=== PATIENT | female | born 1990 | race Caucasian/White ===

== ENCOUNTER 2023-08-27 09:59 | Emergency (ER) | payer OTHER, SELFPAY ==
[2023-08-27] VITALS (9 sets, daily range): BP systolic 121–140; BP diastolic 76–89; PULSE 90–116; RESP 18–20; TEMP 36.8; O2SAT 96–100
--- NOTE | 2023-08-27 10:31 | ECG_ITS ---
Measurements Intervals [place] Rate: 90 P: 28 TX: 199 QRS: 37 QRSD: 89 T: 58 QT: 357 QTc: 439 Interpretive Statements SINUS RHYTHM WITHIN NORMAL LIMITS NO PREVIOUS ECG AVAILABLE FOR COMPARISON Electronically Signed On 08-27-2023 15:12:14 UNDERWRITING INTERN by Lit Mckeon M.D.
--- NOTE | 2023-08-27 11:17 | PC.NURSE ---
Pt reported my face feels really hot . Applied cool wash cloth to provide comfort.
[2023-08-27 11:29] LABS: Basophils Absolute Auto 0.1 K/mm3 (0.0-0.1); Basophils Percent Auto 0.5 % (0.2-1.2); Eosinophils Absolute Auto 0.1 K/mm3 (0-0.3); Eosinophils Percent Auto 1.2 % (0-4.4); Hematocrit 43.5 % (37.0-47.0); Hemoglobin 14.1 g/dL (12.0-15.0); Immature Granulocyte Absolute 0.04 K/mm3 (0.00-0.031); Immature Granulocyte Percent A 0.4 % (0-0.5); Lymphocytes Absolute Auto 0.58 K/mm3 (0.9-3.2); Lymphocytes Percent Auto 6.2 % (18.3-44.2); Mean Corpuscular HGB Conc 32.4 g/dl (32-36); Mean Corpuscular Hemoglobin 30.3 pg (26-34); Mean Corpuscular Volume 93.3 fl (80-100); Mean Platelet Volume 9.2 fl (7.4-10.4); Monocytes Absolute Auto 0.7 K/mm3 (0.1-0.6); Monocytes Percent Auto 7.7 % (2.6-8.5); Neutrophils Absolute Auto 7.9 K/mm3 (1.3-6.7); Platelet Count Result 275 k/mm3 (150-375); Red Blood Count 4.66 M/mm3 (4.2-5.4); Red Cell Distribution Width 12.4 % (11.5-14.5); White Blood Count 9.4 K/mm3 (4.5-10.0)
[2023-08-27 11:35] LABS: Alanine Aminotransferase 46 U/L (6-35); Albumin Level 4.6 g/dL (3.5-5.1); Alkaline Phosphatase 109 U/L (38-126); Anion Gap 8 mmol/L (8-16); Aspartate Amino Transferase 42 U/L (14-36); Bilirubin,Total 0.4 mg/dL (0.2-1.3); Blood Urea Nitrogen 10 mg/dL (7-17); Calcium 9.2 mg/dL (8.4-10.2); Carbon Dioxide 29 mmol/L (22-30); Chloride 100 mmol/L (98-107); Estimated CRCL calculation 116 ml/min; Estimated Glomerular Filt Rate > 60; Glucose 96 mg/dL (65-110); Sodium 137 mmol/L (137-145)
--- NOTE | 2023-08-27 12:11 | ED.DIZZY ---
HPI - Dizziness General Chief Complaint: Dizziness Stated Complaint: Dizzy Time Seen by Provider: 08/27/23 10:05 Source: patient and family (partner) Mode of arrival: ambulatory Limitations: no limitations History of Present Illness HPI Narrative: 33 yo with 2 weeks of intermittent heart palpitations. She started feeling lightheaded on Wednesday and dizzy/lightheaded on . In general, she has been feeling fatigued. Deneis any chest pain. Has been occasionally short of breath with a cough but no fevers. No nausea or vomiting. No hearing changes though possible tinnitus. No unilateral symptoms. She gets symptoms with head movements but no syncope or near syncope. Has a copper IUD. Hx of asd repair at 7 years old and previously saw a dietary cook every once in awhile afterwards but not in the past >5 years. Related Data Allergies Allergy/AdvReac Type Severity Reaction Status Date / Time dexamethasone [From Decadron] AdvReac Fainting Verified 08/27/23 10:19 [facility] Surgical History Surgical History (Updated 09/04/23 @ 13:50 by Jennifer Becerra MD) H/O congenital atrial septal defect (ASD) repair Exam Const: General: no acute distress and alert; No confusion or diaphoretic Nutritional Appearance: well nourished Orientation/consciousness: patient oriented x3 Limitations: no limitations HENMT: Head: normal to inspection Ears: TM's normal bilaterally Face/Nose/Sinus: Normal external nose present Face and sinus: normal facial exam Mouth: Yes Normal oral and palatal mucosa present Eyes: Conjunctivae: conjunctivae normal (w/o pallor) EOM: EOMs intact bilaterally Neck: Neck: normal visual inspection and no meningeal signs Resp: Effort & Inspection: normal respiratory effort, not labored, no retractions, not tachypneic and no use of accessory muscles Cardio: Rate: regular rate Rhythm: regular rhythm Skin: General skin exam: normal color, no jaundice and no pallor Rashes: no rashes Neuro: General: patient oriented x3, moves all extremities, no meningeal signs and no focal motor deficits Cranial nerves: Yes Nystagmus not present Gait exam (Neuro): Normal gait present (though ambulates slowly, observed walking to the bathroom; not ataxic) Extrem: General: normal to inspection Psych: Mental Status: mental status grossly normal Attitude: cooperative Course Vital Signs Vital signs: Vital Signs Temperature 98.3 F 08/27/23 10:03 Pulse Rate 90 08/27/23 10:03 Respiratory Rate 20 08/27/23 10:03 Blood Pressure 140/89 08/27/23 10:03 Pulse Oximetry 96 08/27/23 10:03 Oxygen Delivery Room Air 08/27/23 10:03 Temperature 98.3 F 08/27/23 10:03 Pulse Rate 98 08/27/23 14:13 Respiratory Rate 18 08/27/23 14:13 Blood Pressure 126/82 08/27/23 14:13 Pulse Oximetry 98 08/27/23 14:13 Oxygen Delivery Room Air 08/27/23 10:03 MDM - Dizziness MDM Narrative Medical decision making narrative: Patient presents with intermittent heart palpitations for 2 weeks as well as recently feeling dizzy/lightheaded. She is also feelign fatigued with a cough and occasional shortness of breath. In the ED she is afebrile with vital signs within normal limits. She does test positive for COVID and I suspect this is causing her symptoms. We discussed that viral symtpoms are best treated with rest and ibuprofen/Tylenol. Given her cardiac history, will prescribed Paxlovid and we discussed potential side effects that she should be on the look out for and consider discontinguing the medication if she would like. Stable for discharge. Differential Diagnosis Differential diagnosis: Likely benign paroxysmal positional vertigo, orthostatic hypotension, acute vestibular neuronitis and other (acute viral syndrome; labryrinthitis; Menieres, ) Lab Data Attestation: I reviewed the patient's lab results. Lab results narrative: CBC unremarkable w/o leukocytosis, anemia, thrombocytpoenia. Normal renal funciton wi
[2023-08-27 12:22] LABS: Influenza A QL RT-PCR Negative (Negative); Influenza B QL RT-PCR Negative (Negative); RSV RNA, RT-PCR Negative (Negative); SARS-CoV-2 RNA PCR Positive (Negative)
[2023-08-27] MEDS: MECLIZINE HCL 25 MG TABLET PO (13:18)
[2023-08-27 13:24] LABS: Appearance Urine Clear (Clear); Bilirubin Urine Negative (Negative); Blood Urine Negative (Negative); Color Urine Yellow (Yellow); Glucose Urine UA Negative (Negative); Ketones Urine Negative (Negative); Leukocyte Esterase Ur Negative LEU/UL (Negative); Nitrate Urine Negative (Negative); Protein Urine Negative (Negative); Specific Grav Ur 1.016 (1.001-1.035); Urobilinogen Urine 0.2 mg/dL (<2.0); pH Urine 8.5 (5.0-9.0)
[2023-08-27 13:31] LABS: Add Urine Microscopic? NO
[2023-08-27] MEDS: ACETAMINOPHEN 500 MG TABLET 1000 MG PO (14:41)
[2023-08-27] MEDS: IBUPROFEN 600 MG TABLET PO (14:42)
== END 2023-08-27 14:52 | disposition home or self-care (01) ==
PROVIDERS: Emergency Provider Student in an Organized Health Care Education/Training Program; PCP Internal Medicine Cardiovascular Disease
DX: U07.1 COVID-19 (principal); R94.5 Abnormal results of liver function studies
CPT/HCPCS: 36415; 80053; 81003; 81025; 85025; 87637; 93005; 99283; A9270